=== PATIENT | female | born 2005 | race Two or more races ===

== ENCOUNTER 2024-03-27 13:05 | Emergency (ER) | payer SELFPAY ==
[~2024-03-27] VITALS: Ht 162.6 cm; Wt 63.6 kg
[2024-03-27 14:27] VITALS: BP 110/67; PULSE 93; RESP 17; TEMP 99.1; O2SAT 99
[2024-03-27] MEDS: HYDROcodone-ACET 10/325MG TAB PO ONE (15:49)
[2024-03-27] MEDS ORDERED: IBUP-1455 PO (17:25)
== END 2024-03-27 17:26 | disposition home or self-care (01) ==
LOC: ER 13:10
DX: S83.8X2A Sprain of other specified parts of left knee, initial encounter (principal); Z88.0 Allergy status to penicillin; Z88.1 Allergy status to other antibiotic agents; Z79.899 Other long term (current) drug therapy; X58.XXXA Exposure to other specified factors, initial encounter; Y93.01 Activity, walking, marching and hiking; Y92.89 Other specified places as the place of occurrence of the external cause; Y99.8 Other external cause status
CPT/HCPCS: 29505; 73562